=== PATIENT | female | born 1945 | race Caucasian/White ===

== ENCOUNTER 2019-08-01 20:45 | Inpatient (IN) | payer MEDICARE, OTHER ==
[~2019-08-01] VITALS: Ht 175.3 cm; Wt 60.4 kg
[~2019-08-01 20:45] MED LIST: ASPI81TA45 PO; ATOR40TA PO; CARV12.543 PO; CLOP75TA52 PO; FAMO-79 PO; FERR325T18 PO; HYDR-3245 PO; HYDR-3342 PO; ISOS30TA8 PO; LEVO175T2 PO; LISI40TA PO; LOSA100T14 PO; MULT-750 PO; NEBI20TA2 PO; NITR0.4T41 SL; POLY17PO5 PO; SODI650T PO; TORS20TA PO
--- NOTE | 2019-08-01 20:59 | NUR ---
PER [facility] NOTE: PT WAS SENT TO [place] FROM [facility] FOR EVALUATION OF BILAT FOOT ULCERATIONS. RT FOOT: GREAT TOE NAIL BLACKENED, SCABBED WOUNDS TO 2ND, 4TH & 5TH TOES. LT FOOT: GREAT TOE NAIL LIFTED, ECCHYMOSIS TO BASE OF 2ND TOE NAIL. PEDAL EDEMA BILAT, BOTH LOWER LEGS COOL TO TOUCH, UNABLE TO PALPATE PEDAL PULSES. OXYGEN 2LNC APPLIED FOR LOW O2 SAT (79% RA).
--- NOTE | 2019-08-01 21:06 | NUR ---
PT'S SPOUSE CALLED FOR PT STATUS. SPOUSE: FARHEEN NAVARRETE ( 1945) HOME [phone]. INFORMED FARHEEN THAT PT JUST ARRIVED; NO INFORMATION CURRENTLY AVAILABLE FOR HIM; WILL CALL HIM LATER W/ PT UPDATE. UNDERSTANDING VERBALIZED.
--- NOTE | 2019-08-01 21:29 | NUR ---
MARIXA TOLEDO BS FOR EXAM. THIS RN AND PA UNABLE TO OBTAIN PEDAL PULSES USING DOPPLER.
[2019-08-01] MEDS ORDERED: LISI10TA2 PO (22:03)
[2019-08-01] MEDS ORDERED: METO-264 PO (22:03)
[2019-08-01] MEDS ORDERED: METO5TAB5 PO (22:03)
[2019-08-01] MEDS ORDERED: FURO40TA6 PO (22:03)
[2019-08-01 22:10] LABS: BASOPHILS % (AUTO) 0 % (0-1); EOSINOPHILS # (AUTO) 0.14 x10^3/uL (0-0.4); EOSINOPHILS % (AUTO) 3 % (1-7); LYMPHOCYTES % (AUTO) 12 % (22-44); MD NO; MEAN CORPUSCULAR HGB CONC 33.2 g/dL (32.4-35.8); MEAN CORPUSCULAR VOLUME 102.4 fL (80-100); MEAN PLATELET VOLUME 7.8 fL (7.4-10.4); MONOCYTES # (AUTO) 0.24 x10^3/uL (0.2-0.8); MONOCYTES % (AUTO) 4 % (2-9); NEUTROPHILS % (AUTO) 81 % (42-75); PLATELET COUNT 177 x10^3/uL (130-400); RED BLOOD COUNT 2.95 x10^6/uL (3.82-5.3); RED CELL DISTRIBUTION WIDTH 16.7 % (9.6-15.2)
[2019-08-01 22:21] LABS: ALBUMIN 3.2 g/dL (3.4-5.0); ANION GAP 8 mmol/L (5-15); CALCIUM 9.3 mg/dL (8.5-10.1); CHLORIDE 101 mmol/L (98-107); CREATININE 3.95 mg/dL (0.55-1.02)
[2019-08-01] MEDS ORDERED: SENN8.6T12 PO (22:42)
[2019-08-01] MEDS ORDERED: ALLO100T30 PO (22:42)
[2019-08-01] MEDS ORDERED: SENN-99 PO (22:42)
[2019-08-01] MEDS ORDERED: NALOXONE 0.4 MG/ML, 1ML ONE (22:45)
--- NOTE | 2019-08-01 22:49 | NUR ---
NARCAN 0.4MG IV GIVEN PER VO HOSPITALIST. HOSPITALIST CONCERNED PT NOT RESPONDING APPROPRIATELY & SEEMED LETHARGIC.
[2019-08-01] MEDS ORDERED: MORPHINE SULFATE 4 MG/ML, 1ML ONE (22:54)
--- NOTE | 2019-08-01 22:58 | NUR ---
MORPHINE 2MG IV GIVEN PER VO HOSPITALIST. PT C/O LEG PAIN AND FEELING HOT. HOSPITALIST UNABLE TO VO FOR ATIVAN 0.5MG.
[2019-08-01] MEDS ORDERED: LORazepam 2 MG/ML, 1ML ONE (23:02)
--- NOTE | 2019-08-01 23:04 | NUR ---
PT VERY AGITATED. 0.5MG ATIVAN IV GIVEN PER VO HOSPITALIST.
[2019-08-01] MEDS ORDERED: VITAMIN B12 PO (23:10)
[2019-08-01] MEDS ORDERED: ALBU90AE INH (23:10)
[2019-08-01] MEDS ORDERED: CHOL10003 PO (23:10)
--- NOTE | 2019-08-01 23:17 | NUR ---
BEDSIDE REPORT RECEIVED FROM MELANIE WAGNER. PT ALERT AND ORIENTED TO SELF. PT UNABLE TO SIT STILL ON GURNEY, C/O PAIN TO HER LEGS. PT WAS MEDICATED WITH MORPHINE IV PRIOR TO THIS RN TAKING OVER ASSIGNMENT. ALL VITALS STABLE. CALL LIGHT WITHIN REACH.
--- NOTE | 2019-08-01 23:17 | NUR ---
PT REPORT CALLED TO MELANIE KEEN FOR ROOM [phone]
--- NOTE | 2019-08-01 23:18 | NUR ---
CALLED SPOUSE W/ PT UPDATE. FARHEEN NAVARRETE ( 1945) HOME [phone]. FARHEEN STATES PT IS STAGE 4 KIDNEY DISEASE.
--- NOTE | 2019-08-01 23:22 | NUR ---
VO HOSPITALIST FOR ADDITIONAL MORPHINE 2MG.
--- NOTE | 2019-08-01 23:26 | NUR ---
PT REPORT TO MELANIE MALONE. MORPHINE VIAL GIVEN TO KIRA FOR ADMINISTRATION.
--- NOTE | 2019-08-01 23:33 | NUR ---
VERBAL ORDERS FROM DR. JUARES FOR 2MG OF MORPHINE IV. PT MEDICATED, 5 RIGHTS ADDRESSED. WITH NO CHANGE IN PATIENT CONDITION
[2019-08-01] MEDS ORDERED: HEPARIN 5,000 UNITS/ML, 1ML IV ONE (23:45)
--- NOTE | 2019-08-01 23:45 | NUR ---
ONE BAG OF BELONGINGS LABELED WITH HER NAME, ONE SMALL BAG WITH GLASSES AND ONE HEARING AID LABELED AND SENT UP WITH THE PT.
[2019-08-02] MEDS ORDERED: morphine SULFATE 10 MG/ML, 1ML IVPush PRN
[2019-08-02] MEDS ORDERED: hydrALAzine 20 MG/ML, 1ML IVPush PRN
[2019-08-02] MEDS ORDERED: ONDANSETRON 2MG/ML, 2ML IVPush PRN
[2019-08-02] MEDS ORDERED: ZIPRASIDONE 20 MG INJ IM ONE
[2019-08-02] MEDS ORDERED: ACETAMINOPHEN 325 MG TABLET PO PRN
[2019-08-02] MEDS ORDERED: MORPHINE SULFATE 4 MG/ML, 1ML IVPush ONE
[2019-08-02 00:24] VITALS: BP 144/72
[2019-08-02 01:00] VITALS: BP 144/72
[2019-08-02] MEDS: CLINDAMYCIN PMX 600MG/50ML 50 ML IV SCH ×2 (02:00→07:47)
[2019-08-02] MEDS ORDERED: CLINDAMYCIN PMX 600MG/50ML 50 ML IV SCH (04:00)
[2019-08-02] MEDS: HEPARIN 25,000 UNITS/250ML PMX 250 ML IV PRN (04:05)
[2019-08-02 05:41] LABS: BASOPHILS # (AUTO) 0.02 x10^3/uL (0-0.1); BASOPHILS % (AUTO) 0 % (0-1); EOSINOPHILS # (AUTO) 0.03 x10^3/uL (0-0.4); EOSINOPHILS % (AUTO) 0 % (1-7); HCT (SEDRATE) 30.1 % (34.6-47.8); LYMPHOCYTES # (AUTO) 0.48 x10^3/uL (1-3.4); LYMPHOCYTES % (AUTO) 6 % (22-44); MD NO; MEAN CORPUSCULAR HEMOGLOBIN 33.9 pg (27.0-34.8); MEAN CORPUSCULAR HGB CONC 32.5 g/dL (32.4-35.8); MEAN CORPUSCULAR VOLUME 104.1 fL (80-100); MEAN PLATELET VOLUME 8.1 fL (7.4-10.4); MONOCYTES # (AUTO) 0.26 x10^3/uL (0.2-0.8); MONOCYTES % (AUTO) 3 % (2-9); NEUTROPHILS # (AUTO) 7.88 x10^3/uL (1.8-6.8); NEUTROPHILS % (AUTO) 91 % (42-75); PLATELET COUNT 162 x10^3/uL (130-400); RED BLOOD COUNT 2.89 x10^6/uL (3.82-5.3); RED CELL DISTRIBUTION WIDTH 16.8 % (9.6-15.2)
[2019-08-02 05:45] LABS: ANION GAP 10 mmol/L (5-15); CALCIUM 9.1 mg/dL (8.5-10.1); CHLORIDE 103 mmol/L (98-107); CREATININE 3.87 mg/dL (0.55-1.02)
[2019-08-02] MEDS ORDERED: ASPIRIN 81 MG TABLET EC PO SCH (06:00)
[2019-08-02 06:35] VITALS: BP 124/68
[2019-08-02] MEDS: LEVOTHYROXINE 175 MCG TABLET PO SCH (06:43)
[2019-08-02] MEDS: INSULIN LISPRO 100 UNITS/ML, PEN SQ-INSULIN SCH ×4 (07:00→21:20)
[2019-08-02] MEDS: METOPROLOL SUCCINATE 50 MG TAB.ER.24H PO SCH (07:45)
[2019-08-02] MEDS ORDERED: FUROSEMIDE 40 MG TABLET PO SCH (09:00)
[2019-08-02] MEDS ORDERED: ALLOPURINOL 100 MG TABLET PO SCH (09:00)
[2019-08-02] MEDS: HEPARIN 5,000 UNITS/ML, 1ML IV PRN (10:38)
[2019-08-02] MEDS: DOXYCYCLINE 100 MG in DEXTROSE 5% 250 ML IV SCH ×2 (12:07→23:15)
[2019-08-02 12:08] VITALS: BP 114/63
[2019-08-02 13:26] LABS: MICROSCOPIC AUTO
[2019-08-02] MEDS: CEFTRIAXONE PMX 1GM/50ML 50 ML IV SCH (13:56)
[2019-08-02 19:24] VITALS: BP 111/59
[2019-08-02] MEDS: ATORVASTATIN 40 MG TABLET PO SCH (20:13)
[2019-08-03] MEDS: HYDROcodone/APAP 10/325 MG TABLET PO PRN ×2 (00:14→20:28)
[2019-08-03 01:54] VITALS: BP 118/64
[2019-08-03 05:17] LABS: BASOPHILS # (AUTO) 0.02 x10^3/uL (0-0.1); BASOPHILS % (AUTO) 0 % (0-1); EOSINOPHILS % (AUTO) 10 % (1-7); LYMPHOCYTES # (AUTO) 0.34 x10^3/uL (1-3.4); LYMPHOCYTES % (AUTO) 5 % (22-44); MD NO; MEAN CORPUSCULAR HEMOGLOBIN 33.8 pg (27.0-34.8); MEAN CORPUSCULAR HGB CONC 32.6 g/dL (32.4-35.8); MEAN CORPUSCULAR VOLUME 103.8 fL (80-100); MEAN PLATELET VOLUME 8.6 fL (7.4-10.4); MONOCYTES # (AUTO) 0.39 x10^3/uL (0.2-0.8); MONOCYTES % (AUTO) 6 % (2-9); NEUTROPHILS # (AUTO) 4.94 x10^3/uL (1.8-6.8); NEUTROPHILS % (AUTO) 79 % (42-75); PLATELET COUNT 156 x10^3/uL (130-400); RED BLOOD COUNT 2.84 x10^6/uL (3.82-5.3); RED CELL DISTRIBUTION WIDTH 16.9 % (9.6-15.2)
[2019-08-03 05:27] LABS: ANION GAP 9 mmol/L (5-15); CALCIUM 9.2 mg/dL (8.5-10.1); CHLORIDE 103 mmol/L (98-107)
[2019-08-03 05:28] LABS: CREATININE 4.04 mg/dL (0.55-1.02)
[2019-08-03] MEDS: LEVOTHYROXINE 175 MCG TABLET PO SCH (05:41)
[2019-08-03] MEDS: HEPARIN 5,000 UNITS/ML, 1ML IV PRN ×2 (05:41→19:39)
[2019-08-03 06:33] VITALS: BP 146/72
[2019-08-03] MEDS: INSULIN LISPRO 100 UNITS/ML, PEN SQ-INSULIN SCH ×4 (07:00→20:28)
[2019-08-03] MEDS: METOPROLOL SUCCINATE 50 MG TAB.ER.24H PO SCH (07:46)
[2019-08-03] MEDS: HEPARIN 25,000 UNITS/250ML PMX 250 ML IV PRN (09:48)
[2019-08-03] MEDS: DOXYCYCLINE 100 MG in DEXTROSE 5% 250 ML IV SCH (11:44)
[2019-08-03 12:30] VITALS: BP 132/65
[2019-08-03] MEDS: CEFTRIAXONE PMX 1GM/50ML 50 ML IV SCH (13:11)
[2019-08-03 19:20] VITALS: BP 126/68
[2019-08-03] MEDS: DOXYCYCLINE 100MG TABLET PO SCH (20:27)
[2019-08-03] MEDS: ATORVASTATIN 40 MG TABLET PO SCH (20:27)
[2019-08-04 01:26] VITALS: BP 129/63
[2019-08-04 02:05] LABS: BASOPHILS # (AUTO) 0.02 x10^3/uL (0-0.1); BASOPHILS % (AUTO) 0 % (0-1); EOSINOPHILS # (AUTO) 0.48 x10^3/uL (0-0.4); EOSINOPHILS % (AUTO) 7 % (1-7); LYMPHOCYTES # (AUTO) 0.79 x10^3/uL (1-3.4); LYMPHOCYTES % (AUTO) 12 % (22-44); MD NO; MEAN CORPUSCULAR HEMOGLOBIN 33.4 pg (27.0-34.8); MEAN CORPUSCULAR HGB CONC 32.2 g/dL (32.4-35.8); MEAN CORPUSCULAR VOLUME 103.8 fL (80-100); MEAN PLATELET VOLUME 8.3 fL (7.4-10.4); MONOCYTES # (AUTO) 0.47 x10^3/uL (0.2-0.8); MONOCYTES % (AUTO) 7 % (2-9); NEUTROPHILS # (AUTO) 4.85 x10^3/uL (1.8-6.8); NEUTROPHILS % (AUTO) 73 % (42-75); PLATELET COUNT 163 x10^3/uL (130-400); RED BLOOD COUNT 2.88 x10^6/uL (3.82-5.3); RED CELL DISTRIBUTION WIDTH 16.3 % (9.6-15.2)
[2019-08-04 02:16] LABS: ALBUMIN 2.7 g/dL (3.4-5.0); ANION GAP 8 mmol/L (5-15); CHLORIDE 102 mmol/L (98-107); CREATININE 3.96 mg/dL (0.55-1.02); IRON LEVEL 29 mcg/dL (50-170)
[2019-08-04 02:21] LABS: % IRON SATURATION 8 % (20-55); TOTAL IRON BINDING CAPACITY 346 mcg/dL (250-450)
[2019-08-04] MEDS: LEVOTHYROXINE 175 MCG TABLET PO SCH (05:31)
[2019-08-04] MEDS: INSULIN LISPRO 100 UNITS/ML, PEN SQ-INSULIN SCH ×4 (07:00→20:49)
[2019-08-04 07:25] VITALS: BP 148/79
[2019-08-04] MEDS: DOXYCYCLINE 100MG TABLET PO SCH ×2 (08:29→20:48)
[2019-08-04] MEDS: HYDROcodone/APAP 10/325 MG TABLET PO PRN ×3 (08:29→23:26)
[2019-08-04] MEDS: METOPROLOL SUCCINATE 50 MG TAB.ER.24H PO SCH (08:29)
[2019-08-04] MEDS: HEPARIN 25,000 UNITS/250ML PMX 250 ML IV PRN (13:14)
[2019-08-04] MEDS: CEFTRIAXONE PMX 1GM/50ML 50 ML IV SCH (13:17)
[2019-08-04 13:37] VITALS: BP 138/72
[2019-08-04 20:03] VITALS: BP 140/70
[2019-08-04] MEDS: ATORVASTATIN 40 MG TABLET PO SCH (20:48)
[2019-08-05 01:11] VITALS: BP 135/76
[2019-08-05] MEDS: LEVOTHYROXINE 175 MCG TABLET PO SCH (05:52)
[2019-08-05] MEDS: INSULIN LISPRO 100 UNITS/ML, PEN SQ-INSULIN SCH ×3 (07:06→16:10)
[2019-08-05 07:11] VITALS: BP 152/71
[2019-08-05] MEDS: METOPROLOL SUCCINATE 50 MG TAB.ER.24H PO SCH (08:13)
[2019-08-05] MEDS: DOXYCYCLINE 100MG TABLET PO SCH (08:13)
[2019-08-05 08:38] LABS: ALBUMIN 2.8 g/dL (3.4-5.0); ANION GAP 11 mmol/L (5-15); CALCIUM 9.7 mg/dL (8.5-10.1); CHLORIDE 101 mmol/L (98-107); CREATININE 3.92 mg/dL (0.55-1.02)
[2019-08-05] MEDS: HEPARIN 25,000 UNITS/250ML PMX 250 ML IV PRN (10:37)
[2019-08-05] MEDS: HYDROcodone/APAP 10/325 MG TABLET PO PRN (12:38)
[2019-08-05 12:47] VITALS: BP 159/76
[2019-08-05] MEDS: CEFTRIAXONE PMX 1GM/50ML 50 ML IV SCH (13:29)
[2019-08-05] MEDS ORDERED: DOXY100T PO (16:28)
[2019-08-05] MEDS ORDERED: CEFD300C37 PO (16:28)
== END 2019-08-05 17:20 | disposition home or self-care (01) | DRG 602 ==
LOC: ED 22:29 → EDIP 23:09 → 4EST 23:50
PROVIDERS: ADMIT Internal Medicine; ATTEND Hospitalist
DX: L03.116 Cellulitis of left lower limb (principal); I50.43 Acute on chronic combined systolic (congestive) and diastolic (congestive) heart failure; J96.00 Acute respiratory failure, unspecified whether with hypoxia or hypercapnia; N17.0 Acute kidney failure with tubular necrosis; G92 Toxic encephalopathy; F11.20 Opioid dependence, uncomplicated; N18.4 Chronic kidney disease, stage 4 (severe); I13.0 Hypertensive heart and chronic kidney disease with heart failure and stage 1 through stage 4 chronic kidney disease, or unspecified chronic kidney disease; L03.115 Cellulitis of right lower limb; E11.621 Type 2 diabetes mellitus with foot ulcer; L97.519 Non-pressure chronic ulcer of other part of right foot with unspecified severity; D63.1 Anemia in chronic kidney disease; E03.9 Hypothyroidism, unspecified; D75.89 Other specified diseases of blood and blood-forming organs; E11.22 Type 2 diabetes mellitus with diabetic chronic kidney disease; E11.36 Type 2 diabetes mellitus with diabetic cataract; E78.5 Hyperlipidemia, unspecified; G89.4 Chronic pain syndrome; H91.90 Unspecified hearing loss, unspecified ear; I07.1 Rheumatic tricuspid insufficiency; I25.10 Atherosclerotic heart disease of native coronary artery without angina pectoris; I35.8 Other nonrheumatic aortic valve disorders; E11.51 Type 2 diabetes mellitus with diabetic peripheral angiopathy without gangrene; L97.529 Non-pressure chronic ulcer of other part of left foot with unspecified severity; M10.9 Gout, unspecified; Z79.82 Long term (current) use of aspirin; Z79.890 Hormone replacement therapy; Z79.899 Other long term (current) drug therapy; Z82.49 Family history of ischemic heart disease and other diseases of the circulatory system; Z90.710 Acquired absence of both cervix and uterus; Z95.5 Presence of coronary angioplasty implant and graft; Z98.1 Arthrodesis status; Z88.8 Allergy status to other drugs, medicaments and biological substances; I25.2 Old myocardial infarction
CPT/HCPCS: 36415; 80048; 80069; 81001; 82040; 82306; 82550; 82607; 82728; 82962; 83036; 83540; 83550; 83735; 83970; 84443; 85025; 85520; 85651; 86140; 93005; 93306; 93922; 93925; 99285; G0378; J0696; J1644; J2405; J7060; J1815; J2270